=== PATIENT | female | born 2000 | race Caucasian/White ===

== ENCOUNTER 2022-02-16 22:05 | Emergency (ER) | payer BC, SELFPAY ==
[2022-02-16 22:07] VITALS: BP 109/92; PULSE 97; RESP 16; TEMP 35.8; O2SAT 98; BMI 33.3
--- NOTE | 2022-02-16 22:29 | ED.VIS.GI ---
HPI HPI - GI History of Present Illness Chief Complaint: Abd Pain Informant: patient Abdominal Pain/Flank Pain Onset: Month(s) (1.5 approx) Context: Gradual Onset Timing: Continuous and Waxes and wanes Quality: Aching Location: - (Periumbilical, sometimes more to the left and sometimes more to the right, and occasionally left upper quadrant) Current Severity: 4/10 Maximum Severity: Severe Worsened by: Food (sometimes, unk exactly which ones make it worse) Relieved by: - (Seem to be better before she ran out of simethicone 1 week ago) Nausea/Vomiting/Emesis GI Symptom: Negative for Nausea or Vomiting Diarrhea/Melena/Hematochezia GI Symptom: Negative for Diarrhea, Melena or Hematochezia Associated Symptoms Associated Symptoms: Negative for Dysuria, Frequency, Hematuria or Urgency LMP: About 3 weeks ago patient thinks; usually regular Narrative Narrative: 21-year-old college student, she has been having pain in her abdomen and daily for the last 1 to 2 months. She went to urgent care near the and [place] and they told her to take simethicone before meals and if he got worse to come to the ER. She states she was doing this twice a day, she ran out of the simethicone about a week ago and the symptoms seem worse since then. She denies any nausea or vomiting. Bowel movements are normal and do not necessarily seem to make the pain better. She denies any bright red blood per rectum, melena, mucus in her stools or diarrhea. She denies being particularly constipated. She has never had any abdominal issues in the past nor surgeries in her abdomen. She states she is sexually active but not at risk for because there is no penetration. She denies any thoracic symptoms, fevers or chills, urinary symptoms, back pain. She has not drank any alcohol since this has started. She states it bothers her every day. Some foods seem to make it worse but she cannot think of any obvious patterns. Other than the simethicone, she denies taking any other beok-ntn-agnbimt medications including ibuprofen with any regularity. [facility] Medical History (Updated 02/17/22 @ 00:[address] Jaciel Leach MD) ADHD Anxiety Home Medications dicyclomine 10 mg capsule 20 mg PO .q4-6h PRN abdominal discomfort #30 CAPSULES 02/17/22 [Rx Last Taken Unknown] pantoprazole 40 mg tablet,delayed release 40 mg PO DAILY #30 tabs 02/17/22 [Rx Last Taken Unknown] Allergy/AdvReac Type Severity Reaction Status Date / Time No Known Allergies Allergy Verified 02/16/22 22:09 Surgical History no surgical history no surgical history Social History (Updated 02/16/22 @ 22:[address] Jaciel Leach MD) Smoking Status: Never smoker details: Occasional not recent ROS ROS ED Constitutional Constitutional ED: Denies chills or fever(s) Eyes Eyes: Denies change in vision or diplopia ENT ENT ED: Denies rhinorrhea or sore throat Cardiovascular Cardiovascular: Denies chest pain or palpitations Respiratory/Chest Respiratory/Chest: Denies cough or dyspnea Gastrointestinal Gastrointestinal: Reports as per HPI and abdominal pain; Denies diarrhea, nausea or vomiting Genitourinary Genitourinary ED: Denies dysuria or hematuria Musculoskeletal Musculoskeletal: Denies back pain or neck pain Integumentary Denies abscess or rash Neurologic Neurologic: Denies headache(s), paresthesias or weakness Psychiatric Psychiatric: Denies anxiety or suicidal thoughts EXAM Physical Exam Const Vital Signs: 02/16/22 22:07 02/16/22 22:07 Temperature 96.5 F L 96.5 F L Temperature Source Temporal Temporal Pulse Rate 97 97 Respiratory Rate 16 16 Blood Pressure 109/92 H 109/92 H Blood Pressure Mean 97 97 Pulse Ox 98 98 Oxygen Delivery Method Room Air Room Air Positive well nourished and well developed Constitutional Narrative: Well-appearing in no distress General Appearance ED: well developed and NAD HEENT Reports moist mucous membranes normocephalic and atraumatic Eyes PERRL and EOMs intact bilaterally Neck full ROM and supple Resp normal respiratory effort and clear to auscultation bilaterally Cardio regular rate, regular rhythm and no murmurs Rate: Negative for tachycardic GI non-distended GI Narrative: Mild tenderness epigastrium and to the left and right of the umbilicus. No palpable hernias. No palpable masses. No guarding or rebound tenderness. No other areas of tenderness including lower abdomen. Auscultation: normoactive bowel sounds Palpation: soft Back/Spine no CVA tenderness General Back: other FROM Extremity normal to inspection General Extremety ED: Negative for edema, pulses abnormal or tenderness General Extremity: Negative for edema or pulses abnormal Neuro oriented x3, CN's II-XII intact bilaterally and no sensory deficits noted Sensorium / Orientation: awake and alert Motor Exam: strength 5/5 throughout Skin no rashes or lesions noted and no wounds MDM MDM MDM Narrative Medical decision making narrative: Labs including liver enzymes, urine, all normal. I suspect this is intestinal pain, the differential is wide. It could be a food intolerance, celiac disease, inflammatory bowel disease which is thought to be less likely given her symptoms, irritable bowel syndrome, or other functional intestinal disorders. I discussed this with her and the limitations of the emergency department and diagnosing/differentiating these pathologies. While working her up, she was given a single tablet of dicyclomine 20 mg. She felt much better. We will prescribe her that as well as a PPI, and advised close outpatient follow-up she is comfortable with that plan. I do not think there is any indication for advanced imaging at this time which I discussed with her as well. Lab Data Attestation: I reviewed the patient's lab results. Labs: Laboratory Results - last 24 hr 02/16/22 02/16/22 02/16/22 23:20 23:45 23:45 WBC 5.8 RBC 4.63 Hgb 13.6 Hct 40.9 MCV 88.3 MCH 29.4 MCHC 33.3 RDW Std Deviation 41.1 RDW Coeff of Jacek 12.8 Plt Count 179 MPV 10.6 Immature Gran % (Auto) 0.200 Neut % (Auto) 55.4 Lymph % (Auto) 34.1 [place] % (Auto) 8.7 Eos % (Auto) 0.9 Baso % (Auto) 0.7 Absolute Neuts (auto) 3.2 Absolute Lymphs (auto) 1.99 Nucleated RBC % 0 Sodium 142 Potassium 4.2 Chloride 110 H Carbon Dioxide 29.0 Anion Gap 3 L BUN 6 L Creatinine 0.76 Estim Creat Clear Calc 114.82 Est GFR (MDRD) Af Amer 123 Est GFR (MDRD) Non-Af 102 BUN/Creatinine Ratio 7.9 L Glucose 99 Calcium 9.2 Total Bilirubin 0.90 AST 11 L ALT 18 Alkaline Phosphatase 86 Total Protein 6.9 Albumin 4.1 Globulin 2.8 Albumin/Globulin Ratio 1.5 Lipase 140 Serum , Qual Urine Color Yellow Urine Clarity Clear Urine pH 6.5 Ur Specific [place] 1.015 Urine Protein 15 H Urine Glucose (UA) Normal Urine Ketones Negative Urine Occult Blood Negative Urine Nitrite Negative Urine Bilirubin Negative Urine Urobilinogen Normal Ur Leukocyte Esterase 100 H Urine RBC 0-5 SEEN Urine WBC 0-5 SEEN Ur Squamous Epith Cells 0-5 SEEN Urine Bacteria 2+ Urine Mucus 0 SEEN 02/16/22 23:45 WBC RBC Hgb Hct MCV MCH MCHC RDW Std Deviation RDW Coeff of Jacek Plt Count MPV Immature Gran % (Auto) Neut % (Auto) Lymph % (Auto) [place] % (Auto) Eos % (Auto) Baso % (Auto) Absolute Neuts (auto) Absolute Lymphs (auto) Nucleated RBC % Sodium Potassium Chloride Carbon Dioxide Anion Gap BUN Creatinine Estim Creat Clear Calc Est GFR (MDRD) Af Amer Est GFR (MDRD) Non-Af BUN/Creatinine Ratio Glucose Calcium Total Bilirubin AST ALT Alkaline Phosphatase Total Protein Albumin Globulin Albumin/Globulin Ratio Lipase Serum , Qual NEGATIVE Urine Color Urine Clarity Urine pH Ur Specific [place] Urine Protein Urine Glucose (UA) Urine Ketones Urine Occult Blood Urine Nitrite Urine Bilirubin Urine Urobilinogen Ur Leukocyte Esterase Urine RBC Urine WBC Ur Squamous Epith Cells Urine Bacteria Urine Mucus Discharge Plan Triage Chief Complaint: Abd Pain ED Provider: Jaciel Leach Dx/Rx/DC Orders Clinical Impression: Periumbilical abdominal pain Instructions: Abdominal Pain Prescriptions: New pantoprazole 40 mg tablet,delayed release (DR/EC) 40 mg PO DAILY Qty: 30 0RF dicyclomine 10 mg capsule 20 mg PO .q4-6h PRN (Reason: abdominal discomfort) Qty: 30 0RF Primary Care Provider: Care Physician,No Primary Referrals: [facility] [Group of Physicians] - 1 Week if not improving (or your home doctor when able) Disposition Disposition: Home, Self Care
[2022-02-16] MEDS: Dicyclomine 10 MG Capsule 20 MG PO (22:45)
[2022-02-16 23:30] LABS: Mucous, Urine 0 SEEN /hpf (<or=2+)
[2022-02-16 23:32] LABS: Color, Urine Yellow (Yellow); Glucose, Dipstick Normal (Normal); Ketone-Dipstick Negative (Negative); Leukocyte Esterase-Dipstick 100 /ul (Negative); Nitrite-Dipstick Negative (Negative); Occult Blood-Urine Negative /ul (Negative); Protein-Dipstick 15 mg/dl (Negative); Specific Gravity, Urine 1.015 (1.002-1.030); Urine Bilirubin Dipstick Negative (Negative); Urine Clarity Clear (Clear); Urine Urobilinogen Normal (Normal); Urine pH 6.5 (5.0 - 8.0)
[2022-02-16 23:51] LABS: Absolute Lymphocyte Count 1.99 X10^3/uL (0.83-4.51); Absolute Neutrophil Count 3.2 X10^3/uL (2.0-7.7); Basophil# 0.04 X10^3/uL; Basophil% 0.7 % (0-1); Eosinophil# 0.05 X10^3/uL; Eosinophils% 0.9 % (0-5); Hematocrit 40.9 % (37-47); Hemoglobin 13.6 g/dL (12.0-15.0); Lymphocyte # 1.99 X10^3/ul (0.83-4.51); Lymphocyte % 34.1 % (19-41); Mean Corp Hgb Conc 33.3 g/dL (32-36); Mean Corpuscular Hgb 29.4 pg (27.0-32.0); Mean Corpuscular Volume 88.3 fL (81-99); Mean Platelet Vol. 10.6 fl (6.2-12.0); Monocyte# 0.51 X10^3/uL; Monocyte% 8.7 % (0-10); NRBC Flagged by Analyzer 0 % (0-5); Neutrophil # 3.23 X10^3/uL (2.7-7.7); Neutrophil % 55.4 % (47-70); Platelet Count 179 K/mm3 (150-450); RBC Distribution Width CV 12.8 % (11.6-14.6); RBC Distribution Width SD 41.1 fl (35.1-43.9); Red Blood Count 4.63 M/mm3 (4.2-5.4); White Blood Count 5.8 K/mm3 (4.4-11.0)
[2022-02-16 23:53] LABS: Red Blood Cells-Urine 0-5 SEEN /hpf (0-5); Squamous Epithelial Cells - UA 0-5 SEEN /hpf (5-10); White Blood Cells 0-5 SEEN /hpf (0-5)
[2022-02-16 23:54] LABS: Bacteria 2+ /hpf (None Seen)
[2022-02-17 00:08] LABS: Internal QC Validated? YES +Cl - CLEAR BKGD; Pregnancy, Serum, hCG Quali. NEGATIVE Negative
[2022-02-17 00:11] LABS: ALB/GLOB Ratio 1.5 RATIO (0.9-2.4); AST(SGOT) 11 U/L (15-37); Alanine Aminotransfer ALT/SGPT 18 U/L (13-56); Albumin, Serum 4.1 g/dL (3.2-5.0); Alkaline Phosphatase 86 U/L (45-117); Anion Gap 3 (5-15); BUN 6 mg/dL (7-18); BUN/Creat Ratio 7.9 RATIO (10-20); Calcium,Total 9.2 mg/dL (8.5-10.1); Chloride 110 mmol/L (98-107); Creatinine, Serum 0.76 mg/dL (0.55-1.02); EST Glomerular Filtration Rate 102 mL/min (>60); Est Glom Filt Rate - Afr Amer 123 mL/min (>60); Estimated Creatinine Clearance 114.82 ml/min; Globulin 2.8 g/dL (2.2-4.2); Glucose 99 mg/dL (74-106); Lipase 140 U/L (73-393); Potassium 4.2 mmol/L (3.5-5.1); Protein, Total 6.9 g/dL (6.4-8.2); Sodium Level 142 mmol/L (136-145)
[2022-02-17 00:26] VITALS: PULSE 67; RESP 15; O2SAT 98
== END 2022-02-17 00:56 | disposition home or self-care (01) ==
PROVIDERS: Emergency Provider Emergency Medicine; Visit Provider Emergency Medicine
DX: R10.33 Periumbilical pain (principal)
CPT/HCPCS: 51702; 80053; 81001; 83690; 84703; 85025; 99283; A4216

== ENCOUNTER 2023-05-27 05:15 | Emergency (ER) | payer BC, SELFPAY ==
[2023-05-27 05:16] VITALS: BP 133/72; PULSE 95; RESP 16; TEMP 36.3; O2SAT 98; BMI 33.1
[2023-05-27 05:19] VITALS: BMI 33.1
--- NOTE | 2023-05-27 05:37 | EKG12_ITS ---
Test Reason : DYSRHYTHMIA Blood Pressure : / mmHG Vent. Rate : 080 BPM Atrial Rate : 080 BPM P-R Int : 168 ms QRS Dur : 084 ms QT Int : 362 ms P-R-T Axes : 065 081 042 degrees QTc Int : 417 ms Normal sinus rhythm Possible Left atrial enlargement Borderline ECG Confirmed by James Pace ([id number]), graphics editor ANNELISE SALAZAR ([id number]) on 06/02/2023 9:45:05 AM Referred By: Confirmed By:James Pace
--- NOTE | 2023-05-27 05:37 | CT_ITS ---
STUDY: CTA HEAD AND NECK WITH CONTRAST REASON FOR EXAM: Female, 23 years old patient with sudden onset of headache. RADIATION DOSAGE (If Supplied By Facility): CTDIvol = ( 29.31 ) mGy, DLP = ( 1572.38 ) mGycm TECHNIQUE: CT angiography was performed with a multi-detector CT scanner. Data acquisition was obtained from the skull base through the vertex following intravenous administration of 100 mL of IV Isovue-370. MIP images were reconstructed from the axial data set. Post-processing of the angiographic images was performed, with multiplanar reformation and 3D reconstruction. Individualized dose optimization techniques were used for this CT. COMPARISON: No relevant priors. FINDINGS: Normal bilateral petrous carotid arteries. Normal right cavernous carotid artery with a normal supraclinoid bifurcation. Normal left cavernous carotid artery with a normal supraclinoid bifurcation. Normal right A1 segments of the anterior cerebral artery. Normal left A1 segments of the anterior cerebral artery. Normal intact anterior communicating artery (ACOM). Normal bilateral A2 segments of the anterior cerebral arteries. Normal right M1 and M2 segments of the middle cerebral arteries, with a normal M1 bifurcation. Normal left M1 and M2 segments of the middle cerebral arteries, with a normal M1 bifurcation. There is a persistent origin of the right posterior cerebral artery with absence of the posterior communicating artery (PCOM). There is a persistent origin of the left posterior cerebral artery with absence of the posterior communicating artery (PCOM). Normal bilateral vertebral arteries. Normal basilar artery with a normal basilar bifurcation. The visualized bilateral superior cerebellar (SCA) arteries are normal. Normal bilateral P1, P2 and visualized P3 segments of the posterior cerebral arteries. There is no demonstrated aneurysm of the [place]. There is no demonstrated abnormality of the visualized brain. AORTIC ARCH: Normal visualized aortic arch. Normal origins of the brachiocephalic, left common carotid, and left subclavian arteries. RIGHT CAROTID ARTERIES: Normal right common carotid artery (CCA). Normal right common carotid bulb. Normal origin of the right internal carotid (ICA) artery without a hemodynamically significant stenosis. Normal visualized cervical portion of the right internal carotid artery. Normal origin of the right external carotid artery (ECA). LEFT CAROTID ARTERIES: Normal left common carotid artery (CCA). Normal left common carotid bulb. Normal origin of the left internal carotid (ICA) artery without a hemodynamically significant stenosis. Normal visualized cervical portion of the left internal carotid artery. Normal origin of the left external carotid artery (ECA). VERTEBRAL ARTERIES: Normal bilateral vertebral arteries. NECK ANATOMY: Lung apices appear to be clear. The thyroid has a grossly normal appearance. Visualized parotid and submandibular glands have a grossly normal appearance. Nasopharynx, oropharynx, hypopharynx, larynx and subglottic trachea is within normal limits in appearance. Cervical and thoracic vertebral bodies have normal height and alignment. IMPRESSION: No CT evidence for hemodynamically significant stenosis, thrombosis, dissection or aneurysm. STUDY: CT BRAIN WITHOUT CONTRAST REASON FOR EXAM: Female, 23 years old patient with sudden onset of headache. RADIATION DOSAGE (If Supplied By Facility): CTDIvol = ( 29.31 ) mGy, DLP = ( 1572.38 ) mGycm TECHNIQUE: Transaxial CT imaging of the brain was performed without administration of intravenous contrast material. Multiplanar reformations are submitted for interpretation. Individualized dose optimization techniques were used for this CT. COMPARISON: No relevant priors. FINDINGS: Normal soft tissue structures. Normal calvarium. Normal size ventricles and extra-axial spaces for the patient''s age. There appears to be persistent septum cavum pellucidum and vergae. Normal white matter tracts of the cerebral hemispheres. Normal basal ganglia and thalami. Normal brainstem. Normal cerebellum. There is no intracranial hemorrhage. There are no findings of an acute ischemic infarction. Normal visualized paranasal sinuses. CT/CTA Head AND Neck W/ Contrast IMPRESSION: No CT evidence for mass or acute intracranial hemorrhage. Electronically Signed: Sallie Duarte MD at 6:59 EDT ,
--- NOTE | 2023-05-27 05:38 | EX.ED.DYSGE1 ---
HPI History of Present Illness Chief Complaint: Neuro S/Sx Informant: patient Narrative Narrative: Patient is a 23 year old biologically female that identifies as non-binary (pronouns they them) presenting with headache, paresthesias and vision change. Patient states that and they were doing homework around 415 when there was about a 10 to 15-minute episode of vision change in the left eye. Described as seeing shapes. At the same time started having a right sided throbbing headache. States is not the worst headache of their life but it was sudden onset with maximal intensity. Headache is still present but not quite as severe. They started walking to the kitchen and noticed that the left lower leg and foot below the level of the knee felt numb and was reminiscent of when your leg falls asleep however it did not been in position to fall asleep. Patient also reports that it felt more numb than typical and took longer to wake up. Patient called 911 was brought to the ER for further evaluation. Overall patient had a transient episode of left hand tingling which is resolved as well as a transient episode of tingling of the left upper lip each lasting for less than a minute. Patient reports increased rest associate with school and was crying earlier tonight. Also had some nausea but attributes that to drinking coffee (had coffee at 7:40 PM). No report of any vomiting or change in bowel movements. Reports feeling rundown for the past few days and thought this might be related to starting their menstrual cycle. Denies any fever. Denies any tobacco, recent alcohol or drug use. Denies any recent medication changes. Is on guaifenesin and has a Nexplanon IUD. No other complaints reported. Denies any family history of aneurysm, brain abnormalities, connective tissue disorder or Marfan syndrome. [facility] Medical History ADHD Anxiety Home Medications dicyclomine 10 mg capsule 20 mg (2 x 10 mg) PO .q4-6h PRN abdominal discomfort #30 CAPSULES 02/17/22 [Rx Last Taken Unknown] pantoprazole 40 mg tablet,delayed release 40 mg PO DAILY #30 tabs 02/17/22 [Rx Last Taken Unknown] nitrofurantoin monohydrate/macrocrystals 100 mg capsule (Macrobid) 100 mg PO Q12H 3 days #6 caps 05/27/23 [Rx Last Taken Unknown] Allergy/AdvReac Type Severity Reaction Status Date / Time No Known Allergies Allergy Verified 02/16/22 22:09 Surgical History History of bilateral mastectomy Social History Smoking Status: Never smoker details: Occasional not recent ROS ROS ED Constitutional Constitutional ED: Denies chills or fever(s) Eyes Eyes: Reports change in vision; Denies diplopia ENT ENT ED: Denies ear pain or sore throat Cardiovascular Cardiovascular: Denies chest pain Respiratory/Chest Respiratory/Chest: Denies cough Gastrointestinal Gastrointestinal: Reports nausea; Denies abdominal pain or vomiting Musculoskeletal Musculoskeletal: Denies arthralgias or myalgias Integumentary Denies rash Neurologic Neurologic: Reports headache(s) and paresthesias; Denies weakness Psychiatric Psychiatric: Reports anxiety Hematologic/Lymphatic Hematologic/Lymphatic: Denies easy bleeding or easy bruising EXAM Physical Exam Const Vital Signs: 05/27/23 05:16 Temperature 97.3 F L Temperature Source Temporal Pulse Rate 95 Respiratory Rate 16 Blood Pressure 133/72 H Blood Pressure Mean 92 Pulse Ox 98 Oxygen Delivery Method Room Air Positive well nourished and well developed General Appearance ED: well developed and NAD HEENT Reports moist mucous membranes HEENT Narrative: Normal left tympanic membrane with partial cerumen impaction. Unable to visualize the right panic membrane secondary to cerumen impaction. Moist mucosal membranes. Normal oropharynx appreciated. Negative for trauma Eyes PERRL and EOMs intact bilaterally Eyes Narrative: No visual field cut appreciated. Neck no lymphadenopathy and supple Neck Narrative: Normal range of motion of the neck, no lymphadenopathy appreciated Chest Wall inspection of chest normal Chest Narrative: Status post elective bilateral mastectomy Resp normal respiratory effort and clear to auscultation bilaterally Cardio regular rate, regular rhythm and no murmurs GI normal to inspection, nondistended, normoactive bowel sounds and non-tender Extremity normal to inspection Neuro oriented x3, CN's II-XII intact bilaterally and no sensory deficits noted Neuro Narrative: NIH equals 0 Sensorium / Orientation: alert Motor Exam: strength 5/5 throughout; Negative for general weakness Psych mental status grossly normal Skin no rashes or lesions noted MDM MDM MDM Narrative Medical decision making narrative: Patient evaluated for headache as well as waxing and waning neurologic symptoms. Currently has no acute neurologic symptoms. Patient is quite young and be exceedingly rare to have an acute stroke however subarachnoid hemorrhage/ruptured aneurysm is on the differential as well as complex migraine and stress response. Patient is hemodynamically stable. Will obtain basic labs, EKG and CT of the brain. Will give Tylenol for headache. Patient is improvement of headache in the ER. Remains hemodynamically stable. No further neurologic symptoms in the ER. CTA of the head and neck does not show any acute intracranial hemorrhage or other acute process. Patient is exceedingly rule risk for stroke and I do not think she requires further inpatient workup. Her lab work is largely normal but her urinalysis is concerning with UTI with positive nitrates, 10-25 white blood cells, red blood cells and 3+ bacteria however it is also contaminated with squamous cells. Will send for culture and start on a 3-day course of Macrobid. Patient is given outpatient referral for neurology as well as primary care doctor. At this time I do not think she requires admission. Patient is agreeable. Given return precautions. Discussed getting plenty of rest and drinking fluids. Lab Data Attestation: I reviewed the patient's lab results. Labs: Laboratory Results - last 24 hr 05/27/23 05/27/23 05:50 06:20 WBC 5.9 RBC 5.09 Hgb 14.5 Hct 43.8 MCV 86.1 MCH 28.5 MCHC 33.1 RDW Std Deviation 39.8 RDW Coeff of Jacek 12.8 Plt Count 186 MPV 11.1 Immature Gran % (Auto) 0.200 Neut % (Auto) 46.8 L Lymph % (Auto) 44.5 H [place] % (Auto) 6.9 Eos % (Auto) 0.8 Baso % (Auto) 0.8 Absolute Neuts (auto) 2.8 Absolute Lymphs (auto) 2.64 Nucleated RBC % 0 Sodium 141 Potassium 3.8 Chloride 107 Carbon Dioxide 27.0 Anion Gap 7 BUN 10 Creatinine 0.85 Estim Creat Clear Calc 123.51 Est GFR (MDRD) Af Amer 108 Est GFR (MDRD) Non-Af 89 BUN/Creatinine Ratio 11.8 Glucose 94 Calcium 9.0 Serum , Qual NEGATIVE Urine Color Yellow Urine Clarity Clear Urine pH 5.0 Ur Specific [place] 1.010 Urine Protein 30 H Urine Glucose (UA) Normal Urine Ketones 5 H Urine Occult Blood 250 H Urine Nitrite Positive H Urine Bilirubin Negative Urine Urobilinogen Normal Ur Leukocyte Esterase 100 H Urine RBC 10-25 SEEN Urine WBC 10-25 SEEN Ur Squamous Epith Cells 10-25 SEEN Urine Bacteria 3+ Hyaline Casts 0-5 SEEN Urine Mucus 0 SEEN Radiography Diagnostic Testing: Clinical Impression(s) from Imaging Studies Head/Neck CTA 05/27/23 05:37 IMPRESSION: No CT evidence for mass or acute intracranial hemorrhage. Electronically Signed: Sallie Duarte MD at 6:59 EDT Reading Location ID and State: [address] [place] [address] , Service support , Rhythm Strip Rhythm Strip: Sinus Rhythm Rate: 80 Ectopy: None EKG Initial EKG: Attestation: I personally reviewed and interpreted this EKG as follows: Interpretation: Sinus Rhythm Comments: Normal sinus rhythm at a rate of 80 bpm Normal axis Normal intervals Normal ST segments Discharge Plan Triage Chief Complaint: Neuro S/Sx ED Provider: Lia Loera Dx/Rx/DC Orders Clinical Impression: Urinary tract infection, Paresthesias, Headache Instructions: UTIs Understanding, ED Headache Unspecified, ED Paraesthesias Prescriptions: New nitrofurantoin monohyd/m-cryst [Macrobid] 100 mg capsule 100 mg PO Q12H 3 Days Qty: 6 0RF Rx Instructions: must administer with a meal/food No Action pantoprazole 40 mg tablet,delayed release (DR/EC) 40 mg PO DAILY Qty: 30 0RF dicyclomine 10 mg capsule 20 mg PO .q4-6h PRN (Reason: abdominal discomfort) Qty: 30 0RF Primary Care Provider: Care Physician,No Primary Referrals: Mariela Crowder DO [Med Staff - Ecommerce Marketing Specialist] - As soon as possible Aryan Dallas MD [Non-Staff -Ordering Privileges] - As soon as possible Care Physician,No Primary [Primary Care Provider] - Activity Restrictions/Additional Instructions: Your workup showed a possible UTI but otherwise is normal. The exact cause of your numbness vision changes is not clear however at this time I think it safe for outpatient follow-up. You been given referral for family practice (internal medicine) as well as neurologist. Take the antibiotics as prescribed. Return the emergency room if you have progression worsening your symptoms. You can alternate ibuprofen and Tylenol as needed for further headaches. Make sure you are drinking plenty of fluids. Disposition Disposition: Home, Self Care
[2023-05-27 05:59] LABS: Absolute Lymphocyte Count 2.64 X10^3/uL (0.83-4.51); Absolute Neutrophil Count 2.8 X10^3/uL (2.0-7.7); Basophil# 0.05 X10^3/uL; Basophil% 0.8 % (0-1); Eosinophil# 0.05 X10^3/uL; Eosinophils% 0.8 % (0-5); Hematocrit 43.8 % (37-47); Hemoglobin 14.5 g/dL (12.0-15.0); Lymphocyte # 2.64 X10^3/ul (0.83-4.51); Lymphocyte % 44.5 % (19-41); Mean Corp Hgb Conc 33.1 g/dL (32-36); Mean Corpuscular Hgb 28.5 pg (27.0-32.0); Mean Corpuscular Volume 86.1 fL (81-99); Mean Platelet Vol. 11.1 fl (6.2-12.0); Monocyte# 0.41 X10^3/uL; Monocyte% 6.9 % (0-10); NRBC Flagged by Analyzer 0 % (0-5); Neutrophil # 2.77 X10^3/uL (2.7-7.7); Neutrophil % 46.8 % (47-70); Platelet Count 186 K/mm3 (150-450); RBC Distribution Width CV 12.8 % (11.6-14.6); RBC Distribution Width SD 39.8 fl (35.1-43.9); Red Blood Count 5.09 M/mm3 (4.2-5.4); White Blood Count 5.9 K/mm3 (4.4-11.0)
[2023-05-27] MEDS: Acetaminophen 325 MG Tablet 650 MG PO (06:08)
[2023-05-27 06:14] LABS: Internal QC Validated? YES +Cl - CLEAR BKGD
[2023-05-27 06:15] LABS: Pregnancy, Serum, hCG Quali. NEGATIVE Negative; Record Kit Lot#, Serum Preg. 718086
[2023-05-27 06:19] LABS: Anion Gap 7 (5-15); BUN 10 mg/dL (7-18); BUN/Creat Ratio 11.8 RATIO (10-20); Chloride 107 mmol/L (98-107); Creatinine, Serum 0.85 mg/dL (0.55-1.02); EST Glomerular Filtration Rate 89 mL/min (>60); Est Glom Filt Rate - Afr Amer 108 mL/min (>60); Estimated Creatinine Clearance 123.51 ml/min; Glucose 94 mg/dL (74-106); Potassium 3.8 mmol/L (3.5-5.1); Sodium Level 141 mmol/L (136-145)
[2023-05-27 06:29] LABS: Mucous, Urine 0 SEEN /hpf (<or=2+)
[2023-05-27 06:31] LABS: Color, Urine Yellow (Yellow); Glucose, Dipstick Normal (Normal); Ketone-Dipstick 5 mg/dl (Negative); Leukocyte Esterase-Dipstick 100 /ul (Negative); Nitrite-Dipstick Positive (Negative); Occult Blood-Urine 250 /ul (Negative); Protein-Dipstick 30 mg/dl (Negative); Urine Bilirubin Dipstick Negative (Negative); Urine Clarity Clear (Clear); Urine Urobilinogen Normal (Normal)
[2023-05-27 07:02] LABS: Bacteria 3+ /hpf (None Seen); Red Blood Cells-Urine 10-25 SEEN /hpf (0-5); Squamous Epithelial Cells - UA 10-25 SEEN /hpf (5-10); White Blood Cells 10-25 SEEN /hpf (0-5)
[2023-05-27 07:03] LABS: Hyaline Cast 0-5 SEEN /lpf (0-5)
[2023-05-27 07:22] VITALS: BP 109/64; PULSE 70; RESP 16; TEMP 36.3; O2SAT 99
== END 2023-05-27 07:29 | disposition home or self-care (01) ==
PROVIDERS: Emergency Provider Emergency Medicine; Visit Provider Emergency Medicine
DX: N39.0 Urinary tract infection, site not specified (principal); R20.2 Paresthesia of skin; R51.9 Headache, unspecified; R11.0 Nausea; H53.9 Unspecified visual disturbance; Z97.5 Presence of (intrauterine) contraceptive device
CPT/HCPCS: 70496; 70498; 80048; 81001; 84703; 85025; 87086; 87088; 93005; 99283; Q9967; A4216